=== PATIENT | male | born 1980 | race Caucasian/White ===

== ENCOUNTER 2020-08-25 10:09 | Emergency (ER) | payer OTHER, SELFPAY ==
[2020-08-25] VITALS (12 sets, daily range): BP systolic 110–148; BP diastolic 60–91; PULSE 51–106; RESP 6–20; TEMP -17.7–0; O2SAT 91–97; BMI 19.9
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
--- NOTE | 2020-08-25 10:25 | PC.NURSE ---
radiology at performing portable xrays
--- NOTE | 2020-08-25 10:26 | PC.NURSE ---
Calling [facility] at this time
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
--- NOTE | 2020-08-25 10:29 | XR_ITS ---
PROCEDURE: XR CHEST PORTABLE CLINICAL HISTORY: tube placement COMPARISON: No exams were available for comparison FINDINGS: The cardiomediastinal silhouette and pulmonary vascularity are within normal limits. Tracheal tube is in good position approximately 3.5 cm above the see. The lungs are clear without infiltrates, suspicious nodules, or pleural effusions. There is no pneumothorax. Monitor lines are seen overlying the chest. No acute bony abnormalities. IMPRESSION: Satisfactory position of endotracheal tube, no definite acute chest pathology noted Dictated by: Dr. Kenrick Gonzalez MD 08/25/2020 11:14 Dr. Kenrick Gonzalez MD in [facility] 08/25/2020 11:14
--- NOTE | 2020-08-25 10:34 | PC.NURSE ---
speaking to dr Ellsworth
--- NOTE | 2020-08-25 10:36 | PC.NURSE ---
Pt accepted to [facility] ED at this time
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
--- NOTE | 2020-08-25 10:40 | PC.NURSE ---
report called to [facility] charge nurse per kwanrn
--- NOTE | 2020-08-25 10:43 | PC.NURSE ---
[place] [facility] present at the ED to transport patient
--- NOTE | 2020-08-25 10:45 | PC.NURSE ---
report given to [facility] staff at pt bedside.
== END 2020-08-25 10:50 | disposition short-term general hospital (02) ==
PROVIDERS: Emergency Provider Emergency Medicine
DX: S06.9X9A Unspecified intracranial injury with loss of consciousness of unspecified duration, initial encounter (principal); V47.1XXA Car passenger injured in collision with fixed or stationary object in nontraffic accident, initial encounter; Y92.488 Other paved roadways as the place of occurrence of the external cause
CPT/HCPCS: 31500; 71045; 72170; 96365; 96375; 99284

== ENCOUNTER 2020-11-07 15:00 | Outpatient (RCR) | payer OTHER, SELFPAY | END 2020-11-07 15:05 | disposition home or self-care (01) | LOC: PT 15:00 | PROVIDERS: Visit Provider Student in an Organized Health Care Education/Training Program | DX: S06.9X9A Unspecified intracranial injury with loss of consciousness of unspecified duration, initial encounter (principal); R26.89 Other abnormalities of gait and mobility; V89.2XXA Person injured in unspecified motor-vehicle accident, traffic, initial encounter | CPT/HCPCS: 97163; 97530 ==

== ENCOUNTER 2020-11-07 15:00 | Outpatient (RCR) | payer OTHER, SELFPAY | END 2020-11-07 15:05 | disposition home or self-care (01) | LOC: OT 15:00 | PROVIDERS: Visit Provider Student in an Organized Health Care Education/Training Program | DX: S06.9X9A Unspecified intracranial injury with loss of consciousness of unspecified duration, initial encounter (principal); V89.2XXA Person injured in unspecified motor-vehicle accident, traffic, initial encounter | CPT/HCPCS: 97166; 97530 ==

== ENCOUNTER 2020-11-07 16:00 | Outpatient (RCR) | payer OTHER, SELFPAY ==
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
== END 2020-11-07 16:05 | disposition home or self-care (01) ==
LOC: ST 16:00
PROVIDERS: Visit Provider Student in an Organized Health Care Education/Training Program
DX: S06.9X9A Unspecified intracranial injury with loss of consciousness of unspecified duration, initial encounter (principal); V89.2XXA Person injured in unspecified motor-vehicle accident, traffic, initial encounter
CPT/HCPCS: 92523; 97129; 97130

== ENCOUNTER → 2021-12-09 14:35 | Outpatient (CLI) | payer OTHER, SELFPAY ==
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
== END ==
PROVIDERS: PCP Family Medicine; Visit Provider Family Medicine
DX: F80.9 Developmental disorder of speech and language, unspecified (principal)
CPT/HCPCS: 70450

== ENCOUNTER 2022-10-05 21:33 | Emergency (ER) | payer OTHER, SELFPAY ==
[2022-10-05 21:33] VITALS: BP 117/63; PULSE 111; RESP 17; TEMP 36.6; O2SAT 97; BMI 19.9
--- NOTE | 2022-10-05 21:39 | ECG_ITS ---
APPROVED REPORT Exam: Resting ECG HR:100 bpm ECG Measurements Heart Rate 100 AXES OK 138 P 62 QRSd 87 QRS 48 QT 345 T 55 QTc 402 Conclusion SINUS TACHYCARDIA ABNORMAL RHYTHM ECG INTERPRETATION BASED ON A DEFAULT AGE OF 42 YEARS UNCONFIRMED REPORT Electronically signed by : Silvino Fallon MD 10/07/2022 14:13:14
--- NOTE | 2022-10-05 21:41 | XR_ITS ---
PROCEDURE INFORMATION: Exam: XR Chest Exam date and time: 10/05/2022 10:16 PM Age: 41 years old Clinical indication: Other: Post seizure TECHNIQUE: Imaging protocol: Radiologic exam of the chest. Views: 1 view. COMPARISON: No relevant prior studies available. FINDINGS: Lungs: Unremarkable. No consolidation. Pleural spaces: Unremarkable. No pleural effusion. No pneumothorax. Heart/Mediastinum: Unremarkable. No cardiomegaly. Bones/joints: Unremarkable. IMPRESSION: No acute findings.
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
[2022-10-05 21:52] LABS: Basophils # 0.1 K/mm3 (0-0.2); Basophils % 1.3 % (0.1-2.0); Eosinophils # 0.1 K/mm3 (0.0-0.4); Eosinophils % 1.6 % (0.1-12.0); Hematocrit 43.3 % (42.0-52.0); Hemoglobin 16.1 g/dL (14.1-18.0); Lymphocytes # 2.5 K/mm3 (0.7-4.5); Lymphocytes % 33.7 % (10-50); Mean Corpuscular HGB Conc 37.1 g/dL (31.8-35.4); Mean Corpuscular Hemoglobin 33.8 pg (27.0-31.2); Mean Platelet Volume 9.7 fl (7.4-10.4); Monocytes # 0.6 K/mm3 (0.1-1.0); Monocytes % 7.5 % (1.7-9.3); Neutrophils # 4.2 K/mm3 (1.8-7.8); Neutrophils % 55.9 % (37.0-80.0); Platelet Count 319 K/mm3 (142-424); Red Blood Count 4.75 M/mm3 (4.60-6.20); Red Cell Distribution Width 12.7 % (11.5-17.5); White Blood Count 7.4 K/mm3 (4.8-10.8)
[2022-10-05 21:55] LABS: Chloride 107 mmol/L (98-107); Sodium 141 mmol/L (136-145)
[2022-10-05 21:56] LABS: Potassium 3.6 mmoL/L (3.5-5.1)
[2022-10-05 21:58] LABS: Alanine Aminotransferase 43 U/L (12-78); Aspartate Amino Transferase 45 U/L (17-59); Blood Urea Nitrogen 12 mg/dl (9-20); Creatinine Clearance Estimated 66 mL/min (50-200); Estimated Glomerular Filt Rate 61 ml/min (>60); GFR (African American) 74 ML/MIN (>60)
[2022-10-05 21:59] LABS: Albumin Level 5.2 g/dl (3.5-5.0); Albumin/Globulin Ratio 1.5 (1.1-1.8); Alkaline Phosphatase 90 U/L (38-126); Anion Gap 22.6 mEq/L (5-15); Bilirubin,Total 1.1 mg/dl (0.2-1.3); Calcium 9.2 mg/dl (8.4-10.2); Carbon Dioxide 15 mmol/L (22.0-30.0); Globulin 3.4 g/dL (1.3-3.2); Glucose 175 mg/dl (74-100); Total Protein,Serum 8.6 g/dl (6.3-8.2)
[2022-10-05 22:19] VITALS: PULSE 90; RESP 16; O2SAT 98
[2022-10-05 22:30] VITALS: BP 126/82
--- NOTE | 2022-10-05 22:57 | HMH.EDSEIZ ---
Discharge Plan Disposition Patient Disposition: Home, Self-Care Chief Complaint: Seizure Prescriptions Prescriptions: No Action quetiapine [Seroquel] 25 mg tablet 25 mg PO HS Qty: 30 2RF memantine 10 mg tablet 10 mg PO BID Qty: 180 3RF Rx Instructions: Month twostart only after completing 5 mg p.o. twice daily x1 month. vortioxetine 20 mg tablet 20 mg PO DAILY Qty: 90 3RF clonazepam [Klonopin] 2 mg tablet 2 mg PO BID PRN (Reason: anxiety) Qty: 60 0RF Referrals Follow up/Referrals: Chase Adams MD [Primary Care Provider] - See instructions Clinical Impressions Clinical Impression: Traumatic brain injury, New onset seizure Instructions Patient Instructions: DI for Seizure Disorder -- Adult Discharge ED Provider: Neville (ED)Shailesh Seizures HPI General Chief Complaint: Seizure Stated Complaint: Seizure Time Seen by Provider: 10/05/22 22:57 Mode of Arrival: EMS Source of Information: EMS and Medical Record Limitations: No Limitations Description of Symptoms (Recalled from ER Triage Doc. by RN): 41 M presents via EMS post seizure at home. Denies trauma. Patient has no history of seizure in the past, but does have TBI History of Present Illness HPI Narrative: pt with sz described as tonic-clonic for about 5 min - pt has hx of tbi - no fever or other c/o MD complaint: seizure Onset (ago): hour(s) Description of Episode: tonic-clonic movement Witnessed: yes - by bystander Trauma: No Seizure History: known seizure disorder Place: home Possible Precipitating Event: head injury Associated symptoms: denies other symptoms Treatments prior to arrival: none Related Data Previous Rx's Medication Instructions Recorded memantine 10 mg tablet 10 mg PO BID #180 tabs 04/23/22 vortioxetine 20 mg tablet 20 mg PO DAILY #90 tabs 04/23/22 quetiapine 25 mg tablet (Seroquel) 25 mg PO HS #30 tabs 08/11/22 clonazepam 2 mg tablet (Klonopin) 2 mg PO BID PRN anxiety #60 tabs 09/04/22 Allergies Allergy/AdvReac Type Severity Reaction Status Date / Time No Known Allergies [facility]ergy Verified 08/11/22 15:29 [facility] Disclaimer: The information contained in this section may have been updated after the patient was seen, as this information can be updated by other users. Social History Smoking Status: Former smoker alcohol intake: former substance use type: former substance user current occupational status: disabled Travel in the last 8 weeks: None household members: spouse and children housing: house ROS Obtained: Yes All systems reviewed & no additional complaints except as documented Physical Exam General General appearance: alert Head Head exam: normocephalic Eye Eye exam: Present PERRL and EOMI ENT ENT exam: Present mucous membranes moist Neck Neck exam: Present trachea midline Respiratory Respiratory exam: Absent respiratory distress Cardiovascular Cardiovascular exam: Present regular rate Abdominal Exam Abdominal exam: Present soft Extremities Exam Extremities exam: Present full ROM Neurological Exam Neurological exam: Present alert, oriented X3 and CN II-XII intact; Absent motor sensory deficit Psychiatric Psychiatric exam: Present normal affect Skin Skin exam: Absent rash Medical Decision Making Medical Records Medical records reviewed: Yes I reviewed the patient's medical records. Richard Inquiry Pt receiving controlled substance: No Vital Signs: 10/05/22 21:33 Temperature 97.8 F Temperature Source Oral Pulse Rate [Left] 111 H Respiratory Rate 17 Blood Pressure [Right Arm] 117/63 Blood Pressure Mean [Right Arm] 81 02 Sat by Pulse Oximetry 97 Oxygen Delivery Method Room Air Lab Data Lab results reviewed: Yes I reviewed the patient's lab results. Lab Results 10/05/22 21:44: WBC 7.4, RBC 4.75, Hgb 16.1, Hct 43.3, MCV 91.0, MCH 33.8 H, MCHC 37.1 H, RDW 12.7, Plt Count 319, MPV 9
[2022-10-05 23:00] VITALS: BP 130/89; PULSE 88; RESP 18
[2022-10-05 23:02] LABS: Microscopic, Urine URINE MICROSCOPIC (MICROSCOPIC)
[2022-10-05 23:07] LABS: Appearance,Urine CLEAR (Clear); Bilirubin,Urine Negative (Negative); Blood, Urine TRACE-I (Negative); Color,Urine YELLOW (Yellow); Glucose,Urine (UA) Negative (Negative); Ketones,Urine TRACE (Negative); Leukocyte Esterase,Urine Negative (Negative); Nitrate,Urine Negative (Negative); Protein,Urine 2+ (Negative); Specific Gravity, Urine >= 1.030 (1.005-1.030)
[2022-10-05 23:18] LABS: Amphetamine/Metha Screen,Urine Negative ng/ml (<1000); Benzodiazepines Screen,Urine Negative ng/ml (<200)
[2022-10-05 23:19] LABS: Barbiturates Screen,Urine Negative ng/ml (<200); Cannabinoid Screen,Urine Negative ng/ml (<50)
[2022-10-05 23:20] LABS: Cocaine Screen,Urine Negative ng/ml (<300)
[2022-10-05 23:21] LABS: Methadone Screen,Urine Negative ng/ml (<300); Opiate Screen,Urine Negative ng/ml (<300)
[2022-10-05 23:22] LABS: Phencyclidine Screen,Urine Negative ng/ml (<25)
[2022-10-05 23:30] VITALS: BP 138/93; PULSE 86; RESP 20
[2022-10-05 23:42] VITALS: BP 115/60; PULSE 100; RESP 18; TEMP 36.6; O2SAT 99
[2022-10-05 23:45] LABS: RBC,Urine Occasional #/hpf (0-3); Sperm,Urine 3+ /lpf; WBC,Urine Occasional #/hpf (0-3)
== END 2022-10-06 | disposition home or self-care (01) ==
PROVIDERS: Emergency Provider Emergency Medicine; PCP Family Medicine
DX: R56.9 Unspecified convulsions (principal); Z87.820 Personal history of traumatic brain injury; Z87.891 Personal history of nicotine dependence
CPT/HCPCS: 70450; 71045; 80053; 80305; 81001; 85025; 93005; 96361; 96365; 99285; J1953

== ENCOUNTER → 2023-01-07 11:29 | Outpatient (CLI) | payer OTHER, SELFPAY ==
[2023-01-11 16:10] LABS: Levetiracetam (Keppra) <2.0 ug/mL (10.0-40.0)
== END ==
PROVIDERS: PCP Family Medicine; Visit Provider Specialist
DX: R56.9 Unspecified convulsions (principal)
CPT/HCPCS: 36415; 80177

== ENCOUNTER 2023-11-29 12:44 | Emergency (ER) | payer MEDICARE, SELFPAY ==
[2023-11-29] VITALS (8 sets, daily range): BP systolic 86–151; BP diastolic 59–72; PULSE 65–112; RESP 12–20; TEMP 37; O2SAT 93–98; BMI 22.6
--- NOTE | 2023-11-29 13:34 | PC.NURSE ---
Rounded on pt to see if they had any needs. wanted something to drink but scans had not been done yet
[2023-11-29 14:00] LABS: Alanine Aminotransferase 75 U/L (12-78); Albumin Level 5.1 g/dl (3.5-5.0); Albumin/Globulin Ratio 1.6 (1.1-1.8); Alkaline Phosphatase 76 U/L (38-126); Aspartate Amino Transferase 53 U/L (17-59); Bilirubin,Total 1.1 mg/dl (0.2-1.3); Blood Urea Nitrogen 11 mg/dl (9-20); Calcium 10.1 mg/dl (8.4-10.2); Carbon Dioxide 12 mmol/L (22.0-30.0); Chloride 104 mmol/L (98-107); Creatinine Clearance Estimated 78 mL/min (50-200); Estimated Glomerular Filt Rate 67 ml/min (>60); GFR (African American) 81 ML/MIN (>60); Globulin 3.1 g/dL (1.3-3.2); Glucose 141 mg/dl (74-100); Potassium 3.5 mmoL/L (3.5-5.1); Total Protein,Serum 8.2 g/dl (6.3-8.2)
[2023-11-29 14:05] LABS: Basophils # 0.1 K/mm3 (0-0.2); Basophils % 1.2 % (0.1-2.0); Eosinophils # 0.2 K/mm3 (0.0-0.4); Eosinophils % 2.2 % (0.1-12.0); Hemoglobin 15.8 g/dL (14.1-18.0); Lymphocytes # 4.3 K/mm3 (0.7-4.5); Lymphocytes % 47.9 % (10-50); Mean Corpuscular Hemoglobin 29.9 pg (27.0-31.2); Mean Corpuscular Volume 96.3 fl (80-94); Mean Platelet Volume 10.9 fl (7.4-10.4); Monocytes # 0.7 K/mm3 (0.1-1.0); Monocytes % 7.9 % (1.7-9.3); Neutrophils # 3.7 K/mm3 (1.8-7.8); Neutrophils % 40.7 % (37.0-80.0); Platelet Count 297 K/mm3 (142-424); Red Cell Distribution Width 13.3 % (11.5-17.5)
[2023-11-29] MEDS: LACTATED RINGERS 1000ML 1,000 ML 999 ML IV (14:08)
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
[2023-11-29] MEDS: levETIRAcetam 2,000 MG in 0.9 % SODIUM CHLORIDE 100 ML 240 MG IV (14:31)
[2023-11-29 14:32] LABS: Anion Gap 31.5 mEq/L (5-15); Sodium 144 mmol/L (136-145)
[2023-11-29 14:37] LABS: Magnesium 2.1 mg/dl (1.6-2.3)
--- NOTE | 2023-11-29 15:32 | PC.NURSE ---
Respiratory & Lab notified for repeat BMP and VBG, blood sent, and orders placed in lab.
[2023-11-29 15:43] LABS: Lactate Venous 1.8 mmol/L (0.4-2.0); VBG Base Excess -3.4 mmol/L (-2.4-2.3); VBG HCO3 21.9 mmol/L (23-30); VBG Oxygen Saturation 94.5 % (50-70); VBG PCO2 38.4 mmol/L (35-51); VBG PH 7.37 mmol/L (7.31-7.41); VBG PO2 76.5 mmol/L (28-40)
[2023-11-29 15:47] LABS: Chloride 107 mmol/L (98-107); Potassium 3.5 mmoL/L (3.5-5.1); Sodium 139 mmol/L (136-145)
[2023-11-29 15:50] LABS: Anion Gap 8.5 mEq/L (5-15); Blood Urea Nitrogen 11 mg/dl (9-20); Calcium 9.4 mg/dl (8.4-10.2); Carbon Dioxide 27 mmol/L (22.0-30.0); Creatinine Clearance Estimated 104 mL/min (50-200); Estimated Glomerular Filt Rate 93 ml/min (>60); GFR (African American) 113 ML/MIN (>60); Glucose 116 mg/dl (74-100)
[2023-12-02 06:13] LABS: Levetiracetam (Keppra) <2.0 ug/mL (10.0-40.0)
== END 2023-11-29 16:20 | disposition home or self-care (01) ==
PROVIDERS: Emergency Provider Emergency Medicine
DX: G40.909 Epilepsy, unspecified, not intractable, without status epilepticus (principal); Z87.820 Personal history of traumatic brain injury
CPT/HCPCS: 80048; 80053; 80177; 82803; 83735; 85025; 96361; 96374; 99284; J1953

== ENCOUNTER 2024-02-15 14:34 | Outpatient (CLI) | payer MEDICARE, SELFPAY ==
[2024-02-15 18:10] LABS: Basophils % 0.8 % (0.1-2.0); Eosinophils # 0.1 K/mm3 (0.0-0.4); Eosinophils % 2.4 % (0.1-12.0); Hematocrit 48.7 % (42.0-52.0); Hemoglobin 16.1 g/dL (14.1-18.0); Lymphocytes # 1.4 K/mm3 (0.7-4.5); Mean Corpuscular Hemoglobin 30.1 pg (27.0-31.2); Mean Corpuscular Volume 91.1 fl (80-94); Mean Platelet Volume 10.4 fl (7.4-10.4); Monocytes # 0.4 K/mm3 (0.1-1.0); Monocytes % 7.7 % (1.7-9.3); Neutrophils # 3.5 K/mm3 (1.8-7.8); Neutrophils % 64.1 % (37.0-80.0); Platelet Count 233 K/mm3 (142-424); Red Blood Count 5.35 M/mm3 (4.60-6.20); White Blood Count 5.5 K/mm3 (4.8-10.8)
[2024-02-15 18:28] LABS: Alanine Aminotransferase 58 U/L (12-78); Albumin Level 4.8 g/dl (3.5-5.0); Albumin/Globulin Ratio 1.5 (1.1-1.8); Alkaline Phosphatase 88 U/L (38-126); Anion Gap 15.4 mEq/L (5-15); Aspartate Amino Transferase 42 U/L (17-59); Bilirubin,Total 0.8 mg/dl (0.2-1.3); Blood Urea Nitrogen 11 mg/dl (9-20); Calcium 10.2 mg/dl (8.4-10.2); Carbon Dioxide 28 mmol/L (22.0-30.0); Chloride 102 mmol/L (98-107); Chol/HDL Ratio 6.2 (1-3.5); Cholesterol 236 mg/dl (140-200); Estimated Glomerular Filt Rate 93 ml/min (>60); GFR (African American) 113 ML/MIN (>60); Globulin 3.2 g/dL (1.3-3.2); Glucose 99 mg/dl (74-100); HDL Cholesterol 38 mg/dl (40-60); Potassium 4.4 mmoL/L (3.5-5.1); Sodium 141 mmol/L (136-145); Triglycerides 286 mg/dl (30-150); VLDL Cholesterol 57 mg/dL (0-40)
[2024-02-15 18:39] LABS: Direct LDL Cholesterol 118.94 mg/dL (100-129)
[2024-02-15 18:48] LABS: 25-OH Vitamin D, Total 34.1 ng/mL (30-100)
[2024-02-16 10:43] LABS: Thyroid Stimulating Hormone 1.81 uIU/mL (0.465-4.68)
== END 2024-02-15 23:59 | disposition home or self-care (01) ==
LOC: LAB.DROPOF 02-16 14:35
PROVIDERS: PCP Nurse Practitioner Family; Visit Provider Nurse Practitioner Family
DX: G40.919 Epilepsy, unspecified, intractable, without status epilepticus (principal); F41.9 Anxiety disorder, unspecified; E55.9 Vitamin D deficiency, unspecified; E78.5 Hyperlipidemia, unspecified; Z68.22 Body mass index [BMI] 22.0-22.9, adult
CPT/HCPCS: 80053; 80061; 82306; 84443; 85025

== ENCOUNTER 2024-07-18 10:33 | Outpatient (CLI) | payer MEDICARE, SELFPAY ==
[2024-07-20 16:34] LABS: Levetiracetam (Keppra) 9.1 ug/mL (10.0-40.0)
== END 2024-07-18 23:59 | disposition home or self-care (01) ==
LOC: LAB 10:34
PROVIDERS: PCP Nurse Practitioner Family; Visit Provider Specialist
DX: G40.919 Epilepsy, unspecified, intractable, without status epilepticus (principal); F41.9 Anxiety disorder, unspecified
CPT/HCPCS: 36415; 80177